=== PATIENT | female | born 1950 | race Caucasian/White ===

== ENCOUNTER → 2018-06-10 | Outpatient (CLI) | payer MEDICARE, BC ==
[~2018-06-10] MED LIST: ASPIRIN E.C. 8181 MG PO; BYSTOLIC5 MG PO; COZAAR 50MG50 MG/TAB PO; FISH OIL1000 MG PO; LIVALO2 MG PO; NIASPAN 500MG500 MG PO; TRICOR 48MG48 MG PO; VALIUM 10MG10 MG/TAB PO; VALIUM2 MG PO; VITAMIN D1000 IU PO
== END ==
LOC: MC.RAD 14:32
DX: Z12.31 Encounter for screening mammogram for malignant neoplasm of breast (principal)

== ENCOUNTER → 2018-06-16 | Outpatient (CLI) | payer MEDICARE, BC | LOC: MC.RAD 12:38 | DX: N64.89 Other specified disorders of breast (principal); R92.2 Inconclusive mammogram ==

== ENCOUNTER → 2018-12-27 | Outpatient (CLI) | payer MEDICARE, BC | LOC: MC.RAD 07:11 | DX: N64.89 Other specified disorders of breast (principal) | CPT/HCPCS: G0279 ==

== ENCOUNTER → 2019-07-01 | Outpatient (CLI) | payer MEDICARE, BC | LOC: MC.RAD 07:20 | DX: N64.89 Other specified disorders of breast (principal) | CPT/HCPCS: G0279 ==

== ENCOUNTER 2019-08-28 18:59 | Emergency (ER) | payer MEDICARE, BC ==
[~2019-08-28] VITALS: Ht 160 cm; Wt 67.7 kg
[2019-08-28 19:03] VITALS: BP 174/81; PULSE 71; TEMP 98.3
== END 2019-08-28 19:50 | disposition home or self-care (01) ==
LOC: COL.ER 18:59
DX: S61.211A Laceration without foreign body of left index finger without damage to nail, initial encounter (principal); I25.10 Atherosclerotic heart disease of native coronary artery without angina pectoris; Z23 Encounter for immunization; W26.8XXA Contact with other sharp object(s), not elsewhere classified, initial encounter; Y92.009 Unspecified place in unspecified non-institutional (private) residence as the place of occurrence of the external cause

== ENCOUNTER 2020-02-10 12:45 | Outpatient (RCR) | payer MEDICARE, BC ==
[~2020-02-10 12:45] MED LIST changes: +DESYREL 50MG50 MG PO; +IMDUR 30MG30 MG/TAB PO; +PRAVACHOL10 MG PO; +XANAX 0.5MG0.5 MG PO; +ZOLOFT 100MG100 MG PO
== END 2020-02-16 | disposition home or self-care (01) ==
LOC: WSOT
DX: G56.03 Carpal tunnel syndrome, bilateral upper limbs (principal)

== ENCOUNTER 2020-03-02 10:00 | Outpatient (RCR) | payer MEDICARE, BC | END 2020-03-09 11:32 | disposition home or self-care (01) | LOC: WSOT 10:00 | DX: G56.03 Carpal tunnel syndrome, bilateral upper limbs (principal) ==

== ENCOUNTER → 2020-07-10 | Outpatient (CLI) | payer MEDICARE, BC | LOC: MC.RAD 09:54 | DX: Z12.31 Encounter for screening mammogram for malignant neoplasm of breast (principal); Z00.00 Encounter for general adult medical examination without abnormal findings ==

== ENCOUNTER → 2021-08-19 | Outpatient (CLI) | payer MEDICARE, BC ==
[~2021-08-19] MED LIST changes: +DESYREL 100MG100 MG PO; +LIVALO4 MG PO
== END ==
LOC: MC.RAD 14:45
DX: Z12.31 Encounter for screening mammogram for malignant neoplasm of breast (principal)

== ENCOUNTER → 2022-06-25 | Outpatient (CLI) | payer MEDICARE, BC | LOC: COL.RAD 08:44 | DX: Z12.2 Encounter for screening for malignant neoplasm of respiratory organs (principal); Z87.891 Personal history of nicotine dependence ==

== ENCOUNTER 2023-02-04 20:04 | Emergency (ER) | payer MEDICARE, BC ==
[~2023-02-04] VITALS: Ht 160 cm; Wt 72.7 kg
[2023-02-04 20:13] VITALS: TEMP 98.2
[2023-02-04 20:41] LABS: HEMATOCRIT 40.3 % (37.0-47.0); HEMOGLOBIN 13.5 g/dl (12.5-16.0); MEAN CELL VOLUME 94 fl (80.0-100.0); MEAN CORPUSCULAR HEMOGLOBIN 31 pg (27-31); MEAN CORPUSCULAR HGB CONC 34 g/dl (33.0-37.0); MEAN PLATELET VOLUME 11.2 fl (7.4-10.4); PLATELET COUNT 301 K/mm3 (130-400); RED BLOOD COUNT 4.31 M/mm3 (4.10-5.30); REDCELL DISTRIBUTION WIDTH-CV 13.3 % (11.5-14.5)
[2023-02-04 20:51] LABS: ALANINE AMINOTRANSFERASE 15 U/L (0-55); ALBUMIN 3.8 gm/dL (3.4-4.8); ALKALINE PHOSPHATASE 105 U/L (40-150); ANION GAP 10 mmol/L (7-16); AST,SGOT 23 U/L (5-34); BILIRUBIN,TOTAL 0.3 mg/dL (0.2-1.2); BLOOD UREA NITROGEN 18 mg/dL (10-20); CALCIUM 9.6 mg/dL (8.4-10.2); CARBON DIOXIDE 20 mmol/L (23-31); CHLORIDE 109 mmol/L (98-107); CREATININE, serum 0.82 mg/dL (0.57-1.11); GLUCOSE 114 mg/dL (70-99); SODIUM 139 mmol/L (136-145); TOTAL PROTEIN 6.8 gm/dL (6.2-8.1)
[2023-02-04 21:01] LABS: TROPONIN-I < 0.010 ng/mL (0.00-0.033)
[2023-02-04 21:25] VITALS: BP 116/63; PULSE 61
[2023-02-04 21:49] LABS: BASOPHIL 1 % (0-2); EOSINOPHIL 3 % (0-4); LYMPHOCYTE 34 % (20.0-51.0); METAMYELOCYTE 1 % (0-0); NEUTROPHILS 53 % (42.0-75.2)
[2023-02-04 21:50] LABS: PLATELET ESTIMATE NORMAL (NORMAL)
== END 2023-02-04 21:28 | disposition home or self-care (01) ==
LOC: COL.ER 20:04
PROVIDERS: Emergency Medicine
DX: I10 Essential (primary) hypertension (principal); R07.2 Precordial pain; D72.829 Elevated white blood cell count, unspecified

== ENCOUNTER → 2024-04-15 | Outpatient (CLI) | payer MEDICARE, BC ==
[~2024-04-15] MED LIST changes: +Iohexol 300 - 10 ML VIAL IV ONE; +Triamcinolone 40 MG/ML 1 ML VIAL IJ ONE
== END ==
LOC: COL.RAD 12:29
DX: M25.551 Pain in right hip (principal)
CPT/HCPCS: J0665; J3301; Q9967